=== PATIENT | female | born 1970 | race Caucasian/White ===

== ENCOUNTER 2021-08-21 20:58 | Inpatient (IN) | payer OTHER, MEDICAID ==
[~2021-08-21] VITALS: Ht 172.7 cm; Wt 86.5 kg
[2021-08-21] MEDS ORDERED: levETIRAcetam 500 MG TAB PO ONE (21:45)
[2021-08-21] MEDS ORDERED: AMIODARONE HCL 200 MG TAB PO ONE (21:45)
[2021-08-21] MEDS ORDERED: SODIUM CHLORIDE 0.9% 2,000 ML IV ONE (21:45)
[2021-08-21] MEDS ORDERED: APIXABAN 5 MG TAB PO ONE (21:45)
[2021-08-21 21:51] LABS: Basophils # (auto) 0 10 ^3/uL (0-0.2); Eosinophils # (auto) 0 10 ^3/uL (0-0.8); Lymphocytes # (auto) 1.6 10 ^3/uL (0.4-5.4); Lymphocytes % (auto) 11.1 % (10.0-50.0); Monocytes # (auto) 0.9 10 ^3/uL (0-1.3); Neutrophils % (auto) 82.3 % (37.0-80.0); Nucleated Red Blood Cells % 0.1 %
[2021-08-21 21:53] LABS: Basophils % (auto) 0.2 % (0.0-2.0); Hematocrit 37.5 % (36.0-46.0); Hemoglobin 12.4 g/dL (12.2-16.2); Mean Corpuscular Hemoglobin 33.5 pg (28.0-32.0); Mean Corpuscular Volume 101.7 fL (80.0-100.0); Monocytes % (auto) 6.4 % (0.0-12.0); Neutrophils # (auto) 11.9 10 ^3/uL (1.6-8.6); Red Blood Cells 3.69 10^6/uL (4.0-5.20); Red Cell Distribution Width 13.7 % (11.8-14.3); White Blood Cell 14.5 10^3/uL (4.4-10.8)
[2021-08-21 22:03] LABS: Albumin 3.7 g/dL (3.4-5.0); Calcium 8.7 mg/dL (8.5-10.1)
[2021-08-21 22:10] LABS: BUN/Creatinine Ratio 9.3; Bilirubin, Total 0.7 mg/dL (0.2-1.0)
[2021-08-21 22:15] LABS: Potassium 6.3 mmol/L (3.5-5.1)
[2021-08-21] MEDS ORDERED: InsuLIN R (HUMAN) 100 UNITS in SODIUM CHL 0.9% 99 ML IV SCH (22:45)
[2021-08-21] MEDS ORDERED: DEXTROSE (50%) 50ML SYRG IV PRN (22:45)
[2021-08-21] MEDS ORDERED: INSULIN LANTUS (GLARGINE) 1 /0.01ml (100units/ml) SC ONE (22:45)
[2021-08-21] MEDS: SODIUM CHLORIDE 0.9% 1,000 ML IV SCH (23:30)
[2021-08-22] MEDS ORDERED: ACCU-CHEK COMFORT CURVE STRIP VI SCH ×4 (00:30→05:00)
[2021-08-22] MEDS: SODIUM CHLORIDE 0.9% 1,000 ML IV SCH ×2 (00:30→18:11)
[2021-08-22] MEDS ORDERED: ONDANSETRON HCL 4 MG/2 ML VIAL IV ONE (01:00)
[2021-08-22] MEDS ORDERED: ONDANSETRON HCL 4 MG/2 ML VIAL ONE (01:01)
[2021-08-22] MEDS ORDERED: VANCOMYCIN 1GM/250ML 250 ML IV ONE (02:00)
[2021-08-22] MEDS: cefTRIAXone 1GM/50ML D5W 50 ML IV ONE ×2 (02:04→02:30)
[2021-08-22] MEDS ORDERED: NITROGLYCERIN 0.4 MG SL TAB SL PRN (02:45)
[2021-08-22] MEDS ORDERED: SODIUM BICARBONATE 8.4 % INJ 50ML VIAL IV ONE (02:45)
[2021-08-22] MEDS ORDERED: MORPHINE SULFATE INJECTION 2 MG/ML SYRG IV PRN (02:45)
[2021-08-22] MEDS ORDERED: SODIUM ZIRCONIUM CYCL 10 GM PAK PO ONE (02:45)
[2021-08-22] MEDS ORDERED: cloNIDine HCL 0.1 MG TAB PO PRN (02:45)
[2021-08-22] MEDS ORDERED: CALCIUM GLUC 1,000mg/50ml-NS 50 ML IV ONE (02:45)
[2021-08-22] MEDS: ONDANSETRON HCL 4 MG/2 ML VIAL IV PRN ×2 (03:16→10:37)
[2021-08-22] MEDS ORDERED: hydrALAZINE HCL 20 MG/ML VL ONE (03:40)
[2021-08-22] MEDS ORDERED: hydrALAZINE HCL 20 MG/ML VL IV ONE (03:45)
[2021-08-22] MEDS ORDERED: ENALAPRILAT 1.25 MG/ML-1ML VIAL IV ONE (04:45)
[2021-08-22 05:16] LABS: Calcium 8.6 mg/dL (8.5-10.1); Potassium 4.9 mmol/L (3.5-5.1)
[2021-08-22 05:18] LABS: Lactic Acid w/Reflex 3.6 mmol/L (0.4-2.0)
[2021-08-22 05:20] LABS: BUN/Creatinine Ratio 9.5
[2021-08-22] MEDS ORDERED: NITROGLYCERIN 50MG/250ML 250 ML IV SCH (06:30)
[2021-08-22] MEDS: ACCU-CHEK COMFORT CURVE STRIP VI SCH ×6 (06:30→20:23)
[2021-08-22] MEDS ORDERED: CARVEDILOL 3.125 MG TAB PO SCH ×2 (07:00→10:00)
[2021-08-22 07:27] LABS: INR 1.27 (0.9-1.15); Partial Thromboplastin Time 24.6 sec (23.6-33.0)
[2021-08-22 09:32] LABS: Calcium 8.6 mg/dL (8.5-10.1); Potassium 4.7 mmol/L (3.5-5.1)
[2021-08-22] MEDS ORDERED: ASPirin 81 mg TAB PO SCH (10:00)
[2021-08-22] MEDS ORDERED: AMIODARONE HCL 200 MG TAB PO SCH (10:00)
[2021-08-22] MEDS ORDERED: hydrALAZINE HCL 20 MG/ML VL IV PRN (10:45)
[2021-08-22] MEDS ORDERED: CARVEDILOL 12.5 MG TAB PO ONE (10:45)
[2021-08-22] MEDS ORDERED: INSULIN LANTUS (GLARGINE) 1 /0.01ml (100units/ml) SC ONE (10:45)
[2021-08-22] MEDS ORDERED: DEXTROSE (50%) 50ML SYRG IV ONE (10:45)
[2021-08-22] MEDS ORDERED: InsuLIN REG 1unit/0.01ml Soln (100units/ml) SC ONE (11:30)
[2021-08-22] MEDS ORDERED: ACCU-CHEK COMFORT CURVE STRIP VI ONE (11:30)
[2021-08-22] MEDS: levETIRAcetam 500 MG TAB PO SCH ×2 (11:38→22:00)
[2021-08-22] MEDS: ENOXAPARIN SOD 30 MG/0.3 ML SYRINGE SC SCH (11:40)
[2021-08-22] MEDS ORDERED: METOCLOPRAMIDE HCL 5MG/ml INJ 2ml VIAL IV PRN (13:45)
[2021-08-22] MEDS: AMIODARONE 450mg/250ml AE 250 ML IV SCH (14:53)
[2021-08-22] MEDS ORDERED: SODIUM CHL 0.9% 1000 ML BAG XX ONE (15:30)
[2021-08-22] MEDS ORDERED: DEXTROSE (50%) 50ML SYRG IV PRN (15:45)
[2021-08-22] MEDS: InsuLIN REG 1unit/0.01ml Soln (100units/ml) SC SCH ×2 (16:00→20:00)
[2021-08-22 20:40] LABS: Potassium 3.7 mmol/L (3.5-5.1)
[2021-08-22 20:41] LABS: Calcium 8.8 mg/dL (8.5-10.1)
[2021-08-22] MEDS: CARVEDILOL 12.5 MG TAB PO SCH (22:00)
[2021-08-22] MEDS: ATORVASTATIN 20 MG TAB PO SCH (22:00)
[2021-08-23] MEDS: InsuLIN REG 1unit/0.01ml Soln (100units/ml) SC SCH ×7 (00:18→23:28)
[2021-08-23] MEDS: ACCU-CHEK COMFORT CURVE STRIP VI SCH ×7 (00:18→23:10)
[2021-08-23] MEDS: AMIODARONE 450mg/250ml AE 250 ML IV SCH (05:23)
[2021-08-23 07:53] LABS: Basophils # (auto) 0.2 10 ^3/uL (0-0.2); Basophils % (auto) 1.5 % (0.0-2.0); Eosinophils # (auto) 0.1 10 ^3/uL (0-0.8); Eosinophils % (auto) 1.2 % (0.0-7.0); Hematocrit 37.3 % (36.0-46.0); Hemoglobin 12.5 g/dL (12.2-16.2); Lymphocytes # (auto) 1.3 10 ^3/uL (0.4-5.4); Lymphocytes % (auto) 11.5 % (10.0-50.0); Mean Corpuscular Hemoglobin 33.4 pg (28.0-32.0); Mean Corpuscular Hgb Conc. 33.5 g/dL (32.0-36.0); Mean Corpuscular Volume 99.8 fL (80.0-100.0); Monocytes # (auto) 1.2 10 ^3/uL (0-1.3); Neutrophils # (auto) 8.4 10 ^3/uL (1.6-8.6); Neutrophils % (auto) 74.8 % (37.0-80.0); Nucleated Red Blood Cells % 0.1 %; Red Blood Cells 3.74 10^6/uL (4.0-5.20); Red Cell Distribution Width 13.6 % (11.8-14.3); White Blood Cell 11.2 10^3/uL (4.4-10.8)
[2021-08-23 08:16] LABS: Potassium 4.1 mmol/L (3.5-5.1)
[2021-08-23 08:26] LABS: Bilirubin, Total 0.5 mg/dL (0.2-1.0); Calcium 8.8 mg/dL (8.5-10.1); Total Protein 6.9 g/dL (6.4-8.2)
[2021-08-23] MEDS: CARVEDILOL 12.5 MG TAB PO SCH ×2 (08:32→23:09)
[2021-08-23] MEDS: ASPirin 81 mg TAB PO SCH (08:32)
[2021-08-23 08:33] LABS: Folate (Folic Acid) 18.75 ng/mL (5.38-24)
[2021-08-23] MEDS: ENOXAPARIN SOD 30 MG/0.3 ML SYRINGE SC SCH (08:33)
[2021-08-23] MEDS: levETIRAcetam 500 MG TAB PO SCH ×2 (08:33→23:09)
[2021-08-23] MEDS: SODIUM CHLORIDE 0.9% 1,000 ML IV SCH (08:34)
[2021-08-23] MEDS ORDERED: AMIODARONE HCL 200 MG TAB PO ONE (15:12)
[2021-08-23] MEDS ORDERED: CHOLECALCIFEROL (VITD3) 2,000 UNIT CAP/TAB PO ONE (15:30)
[2021-08-23 22:10] VITALS: BP 115/80
[2021-08-23] MEDS: AMIODARONE HCL 200 MG TAB PO SCH (23:09)
[2021-08-23] MEDS: SACUBITRIL-VALSARTAN 24mg/26mg TAB PO SCH (23:09)
[2021-08-23] MEDS: ATORVASTATIN 20 MG TAB PO SCH (23:10)
[2021-08-24] MEDS: ACCU-CHEK COMFORT CURVE STRIP VI SCH ×6 (01:12→20:08)
[2021-08-24] MEDS ORDERED: AMIO200T33 PO (02:47)
[2021-08-24] MEDS ORDERED: CLON0.2D6 PO (02:47)
[2021-08-24] MEDS ORDERED: ATOR20TA50 PO (02:47)
[2021-08-24] MEDS ORDERED: ASPI1TAB20 PO (02:47)
[2021-08-24] MEDS ORDERED: KEP500T PO (02:47)
[2021-08-24] MEDS ORDERED: HYDR50TA15 PO (02:47)
[2021-08-24] MEDS ORDERED: CARV25TA55 PO (02:47)
[2021-08-24] MEDS ORDERED: NIFE1TAB31 PO (02:47)
[2021-08-24] MEDS ORDERED: B-CO-5 OR (02:47)
[2021-08-24] MEDS: InsuLIN REG 1unit/0.01ml Soln (100units/ml) SC SCH ×5 (04:00→20:00)
[2021-08-24 05:00] VITALS: BP 138/46
[2021-08-24] MEDS ORDERED: SODIUM CHL 0.9% 1000 ML BAG XX ONE (07:00)
[2021-08-24 07:32] LABS: Basophils # (auto) 0.1 10 ^3/uL (0-0.2); Basophils % (auto) 0.7 % (0.0-2.0); Eosinophils # (auto) 0.4 10 ^3/uL (0-0.8); Eosinophils % (auto) 4.6 % (0.0-7.0); Hematocrit 37.9 % (36.0-46.0); Hemoglobin 12.7 g/dL (12.2-16.2); Lymphocytes # (auto) 1.9 10 ^3/uL (0.4-5.4); Lymphocytes % (auto) 23.7 % (10.0-50.0); Mean Corpuscular Hemoglobin 33.5 pg (28.0-32.0); Mean Corpuscular Hgb Conc. 33.6 g/dL (32.0-36.0); Mean Corpuscular Volume 99.9 fL (80.0-100.0); Monocytes % (auto) 12.5 % (0.0-12.0); Neutrophils # (auto) 4.7 10 ^3/uL (1.6-8.6); Neutrophils % (auto) 58.5 % (37.0-80.0); Nucleated Red Blood Cells % 0.1 %; Red Cell Distribution Width 13.3 % (11.8-14.3)
[2021-08-24 07:37] LABS: INR 1.1 (0.9-1.15)
[2021-08-24 07:44] LABS: Calcium 8.6 mg/dL (8.5-10.1); Potassium 3.9 mmol/L (3.5-5.1)
[2021-08-24 07:51] LABS: % Iron Saturation 29.5 % (15-50)
[2021-08-24 07:52] LABS: BUN/Creatinine Ratio 6.1; Bilirubin, Total 0.5 mg/dL (0.2-1.0); Total Protein 6.4 g/dL (6.4-8.2)
[2021-08-24 09:00] VITALS: BP 158/52
[2021-08-24] MEDS: CARVEDILOL 12.5 MG TAB PO SCH ×2 (10:00→23:38)
[2021-08-24] MEDS: AMIODARONE HCL 200 MG TAB PO SCH ×2 (10:00→23:37)
[2021-08-24 13:00] VITALS: BP 147/74
[2021-08-24] MEDS: HYDROcodone-ACET 5/325MG TAB PO PRN ×2 (13:58→23:40)
[2021-08-24] MEDS: ASPirin 81 mg TAB PO SCH (14:08)
[2021-08-24] MEDS: SACUBITRIL-VALSARTAN 24mg/26mg TAB PO SCH ×2 (14:09→22:00)
[2021-08-24] MEDS: levETIRAcetam 500 MG TAB PO SCH ×2 (14:10→23:39)
[2021-08-24] MEDS: CHOLECALCIFEROL (VITD3) 2,000 UNIT CAP/TAB PO SCH (14:11)
[2021-08-24] MEDS: RIVAROXABAN 10 MG TAB PO SCH (14:11)
[2021-08-24 17:07] VITALS: BP 124/61
[2021-08-24 20:00] VITALS: BP 150/69
[2021-08-24] MEDS ORDERED: EPOETIN ALFA-EPBX 10,000 UNIT/1ML VIAL SC ONE (21:00)
[2021-08-24] MEDS: ATORVASTATIN 20 MG TAB PO SCH (23:39)
[2021-08-24 23:50] VITALS: BP 121/46
[2021-08-25] MEDS: ACCU-CHEK COMFORT CURVE STRIP VI SCH ×4 (04:00→11:31)
[2021-08-25] MEDS: InsuLIN REG 1unit/0.01ml Soln (100units/ml) SC SCH ×4 (04:00→11:31)
[2021-08-25 05:28] VITALS: BP 109/83
[2021-08-25 09:20] VITALS: BP 134/58
[2021-08-25] MEDS: AMIODARONE HCL 200 MG TAB PO SCH ×2 (10:00→11:07)
[2021-08-25] MEDS: ASPirin 81 mg TAB PO SCH (10:27)
[2021-08-25] MEDS: levETIRAcetam 500 MG TAB PO SCH (10:29)
[2021-08-25] MEDS: SACUBITRIL-VALSARTAN 24mg/26mg TAB PO SCH (10:29)
[2021-08-25] MEDS: RIVAROXABAN 10 MG TAB PO SCH (10:30)
[2021-08-25] MEDS: CHOLECALCIFEROL (VITD3) 2,000 UNIT CAP/TAB PO SCH (10:30)
[2021-08-25] MEDS ORDERED: CARVEDILOL 3.125 MG TAB PO ONE (11:00)
[2021-08-25 11:51] LABS: Basophils # (auto) 0.1 10 ^3/uL (0-0.2); Lymphocytes # (auto) 2.2 10 ^3/uL (0.4-5.4); Monocytes # (auto) 1.4 10 ^3/uL (0-1.3); Nucleated Red Blood Cells % 0.1 %
[2021-08-25 11:52] LABS: BUN/Creatinine Ratio 5.1; Calcium 8.6 mg/dL (8.5-10.1); Potassium 3.9 mmol/L (3.5-5.1)
[2021-08-25 11:53] LABS: Basophils % (auto) 1.1 % (0.0-2.0); Eosinophils # (auto) 0.4 10 ^3/uL (0-0.8); Eosinophils % (auto) 4.9 % (0.0-7.0); Hematocrit 35.9 % (36.0-46.0); Hemoglobin 12.3 g/dL (12.2-16.2); Lymphocytes % (auto) 25.2 % (10.0-50.0); Mean Corpuscular Hemoglobin 33.8 pg (28.0-32.0); Mean Corpuscular Hgb Conc. 34.3 g/dL (32.0-36.0); Mean Corpuscular Volume 98.5 fL (80.0-100.0); Neutrophils # (auto) 4.7 10 ^3/uL (1.6-8.6); Neutrophils % (auto) 52.8 % (37.0-80.0); Red Blood Cells 3.64 10^6/uL (4.0-5.20); Red Cell Distribution Width 13.2 % (11.8-14.3); White Blood Cell 8.9 10^3/uL (4.4-10.8)
[2021-08-25 12:48] VITALS: BP 143/68
[2021-08-25] MEDS ORDERED: CHOL20007 PO (15:40)
[2021-08-25] MEDS ORDERED: CAR3125T PO (15:40)
[2021-08-25] MEDS ORDERED: RIV20T PO (15:40)
[2021-08-25] MEDS ORDERED: SACU1TAB PO (15:40)
[2021-08-25] MEDS ORDERED: DEXTROSE (50%) 50ML SYRG IV PRN (15:45)
[2021-08-25] MEDS ORDERED: AMIO200T33 PO (15:46)
[2021-08-25] MEDS ORDERED: INSLISPI SC (15:51)
[2021-08-25] MEDS ORDERED: INSLANTI SC (15:51)
[2021-08-25] MEDS: HYDROcodone-ACET 5/325MG TAB PO PRN (16:37)
[2021-08-25 17:05] VITALS: BP 156/82
[2021-08-25 17:11] VITALS: BP 156/82
[2021-08-25 17:17] VITALS: BP 165/72
[2021-08-25] MEDS ORDERED: ACCU-CHEK COMFORT CURVE STRIP VI SCH (18:00)
[2021-08-25] MEDS ORDERED: InsuLIN REG 1unit/0.01ml Soln (100units/ml) SC SCH (18:00)
[2021-08-25] MEDS ORDERED: CARVEDILOL 3.125 MG TAB PO SCH (22:00)
[2021-08-26] MEDS ORDERED: SODIUM CHL 0.9% 1000 ML BAG XX ONE (07:00)
[2021-08-26] MEDS ORDERED: AMIODARONE HCL 200 MG TAB PO SCH (10:00)
== END 2021-08-25 18:45 | disposition home health service (06) | DRG 637 ==
LOC: EDBD 20:58 → ER 20:58 → TELE 08-22 02:38 → TELE-CENTR 08-23 22:10
PROVIDERS: ADMIT Nurse Practitioner; ATTEND Internal Medicine
PROC: 5A1D70Z Performance of Urinary Filtration, Intermittent, Less than 6 Hours Per Day (ICD-10-PCS; principal; 2021-08-22)
PROC: 5A1D70Z Performance of Urinary Filtration, Intermittent, Less than 6 Hours Per Day (ICD-10-PCS; 2021-08-24)
DX: E11.10 Type 2 diabetes mellitus with ketoacidosis without coma (principal); N18.6 End stage renal disease; I21.A1 Myocardial infarction type 2; I50.43 Acute on chronic combined systolic (congestive) and diastolic (congestive) heart failure; R65.10 Systemic inflammatory response syndrome (SIRS) of non-infectious origin without acute organ dysfunction; I13.2 Hypertensive heart and chronic kidney disease with heart failure and with stage 5 chronic kidney disease, or end stage renal disease; I47.2 Ventricular tachycardia; Z99.2 Dependence on renal dialysis; I16.0 Hypertensive urgency; D64.9 Anemia, unspecified; E11.22 Type 2 diabetes mellitus with diabetic chronic kidney disease; E55.9 Vitamin D deficiency, unspecified; E78.5 Hyperlipidemia, unspecified; E87.5 Hyperkalemia; G40.909 Epilepsy, unspecified, not intractable, without status epilepticus; H54.8 Legal blindness, as defined in USA; I48.91 Unspecified atrial fibrillation; E11.43 Type 2 diabetes mellitus with diabetic autonomic (poly)neuropathy; E11.51 Type 2 diabetes mellitus with diabetic peripheral angiopathy without gangrene; I25.10 Atherosclerotic heart disease of native coronary artery without angina pectoris; I48.0 Paroxysmal atrial fibrillation; K31.84 Gastroparesis; Z20.822 Contact with and (suspected) exposure to COVID-19; Z86.73 Personal history of transient ischemic attack (TIA), and cerebral infarction without residual deficits; Z88.8 Allergy status to other drugs, medicaments and biological substances
CPT/HCPCS: 36415; 36600; 71045; 80048; 80053; 80061; 82010; 82306; 82607; 82728; 82746; 82805; 82962; 83036; 83540; 83550; 83605; 83735; 83880; 84443; 84484; 85025; 85610; 85730; 87040; 87340; 87426; 90935; 93005; 93306; 96361; 96365; 96367; 96372; 96375; 97110; 97116; 97163; 99291; G0378; J0696; J1815; J2405